=== PATIENT | male | born 1970 | race Caucasian/White ===

== ENCOUNTER 2019-07-19 00:33 | Emergency (ER) | payer OTHER ==
[~2019-07-19] VITALS: Ht 180.3 cm; Wt 92.5 kg
[~2019-07-19 00:33] MED LIST: ACETAMINOPHEN650 M5 PO; ASPIRIN EC81 M1 PO; CRESTOR10 MG PO; DEXILANT60 MG PO; DILTIAZEM 24HR240 MG PO; FLECAINIDE ACE100 MG PO; FLONASE NS; MUCINEX DM TABL1 TA1 PO; NASONEX17 GM NS; SINGULAIR 10 MG10 M1 PO; SUDAFED30 MG PO
[2019-07-19 01:21] LABS: ABSOLUTE EOSINOPHILS 0.4 thou/uL (0.0-0.7); ABSOLUTE LYMPHOCYTES 2.9 thou/uL (0.8-5.3); ABSOLUTE MONOCYTES 0.9 thou/uL (0.0-1.2); ABSOLUTE NEUTROPHILS 4.9 thou/uL (1.6-8.1); BASOPHILS 0.5 %; EOSINOPHILS 4.3 %; HEMATOCRIT 43.3 % (42.0-52.0); HEMOGLOBIN 15.1 gm/dL (14.0-18.0); LYMPHOCYTES 32.1 %; MCH 32.1 pg (26.0-34.0); MCHC 34.9 g/dL (28.0-37.0); MCV 92.1 fL (80.0-100.0); MONOCYTES 9.5 %; MPV 8.4 fl. (7.2-11.1); NUCLEATED RBCS 0 /100WBC; PLATELET COUNT* 216 thou/uL (150-400); POLYS 53.6 %; RDW-CV 12.6 % (10.5-14.5); WBC 9.2 thou/uL (4.0-11.0)
[2019-07-19 01:25] LABS: ANION GAP 9 mmol/L (7-16); BUN 10 mg/dL (7-18); CALCIUM 8.6 mg/dL (8.5-10.1); CHLORIDE 103 mmol/L (98-107); CO2 28 mmol/L (21-32); CREATININE 1.2 mg/dL (0.6-1.3); GLUCOSE 151 mg/dL (70-99); POTASSIUM 3.2 mmol/L (3.5-5.1); SODIUM 140 mmol/L (136-145)
[2019-07-19 01:35] LABS: ALBUMIN 4.3 g/dL (3.4-5.0); ALKALINE PHOSPHATASE 92 U/L (46-116); SGOT 35 U/L (15-37); SGPT 65 U/L (30-65); TOTAL BILIRUBIN 0.6 mg/dL (<0.1-1.0); TOTAL PROTEIN 7.3 g/dL (6.4-8.2); TROPONIN-I LEVEL <0.06 ng/mL (<0.06)
[2019-07-19] MEDS ORDERED: FLECAINIDE ACET50 M1 PO (01:56)
[2019-07-19 02:05] VITALS: BP 118/80
--- NOTE | 2019-07-19 12:43 | EKG ---
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: [place] : 1970 Requested By: Nhi Grossman Order Number: [id number] Nicole MD: Naseem Peace Measurements Intervals [place] Rate: 209 P: 154 NV: 60 QRS: 80 QRSD: 93 T: -49 QT: 246 QTc: 459 Interpretive Statements Supraventricular tachycardia Repolarization abnormality, prob rate related Artifact in lead(s) V1,V4 and baseline wander in lead(s) V3 No previous ECG available for comparison Electronically Signed On 07-19-2019 12:43:01 CDT by Naseem Peace [email or web address] <ELECTRONICALLY SIGNED> By: Naseem Peace MD, [facility] 07/19/19 1243 0034 0034 Naseem Peace MD, FACC /EPI
--- NOTE | 2019-07-19 12:43 | EKG ---
[place] [address] ELECTROCARDIOGRAM REPORT Name: ALIVIA TRINIDAD II 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
== END 2019-07-19 02:08 | disposition home or self-care (01) ==
LOC: M.ERS 00:33
PROVIDERS: Emergency Medicine
DX: I47.1 Supraventricular tachycardia (principal); E87.6 Hypokalemia; K21.9 Gastro-esophageal reflux disease without esophagitis; Z85.828 Personal history of other malignant neoplasm of skin